=== PATIENT | female | born 1970 | race African-American/Black ===

== ENCOUNTER 2019-02-09 07:12 | Observation (INO) | payer OTHER ==
[2019-02-09] MEDS ORDERED: Morphine 4 MG/ML VIAL ONE (07:36)
[2019-02-09] MEDS ORDERED: Acetaminophen 500 MG TAB ONE (07:37)
[2019-02-09 07:40] LABS: #Basophils 0.1 thou/uL (0.0-0.2); #Eosinphils 0.1 thou/uL (0.0-0.7); #Lymphocytes 0.9 thou/uL (1.20-3.40); #Monocytes 0.4 thou/uL (0.11-0.59); #Neutrophils 5.8 thou/uL (1.40-6.50); %Basophils 1.1 % (0.0-1.0); %Eosinophils 1.3 % (0.0-10.0); %Lymphocytes 11.9 % (21.0-51.0); %Monocytes 5.5 % (0.0-10.0); %Neutrophils 80.2 % (42.0-75.0); Mean Corpuscular Hemoglobin 31.9 pg (27.0-31.0); Mean Platelet Volume 8.3 fL (7.4-10.4); Platelet Count 271 thou/uL (130-400); RBC Distribution Width 11.8 % (11.5-14.5); Red Blood Cell (RBC) Count 4.08 mill/uL (4.20-5.40); White Blood Cell (WBC) Count 7.3 thou/uL (4.8-10.8)
[2019-02-09 08:01] LABS: ALT (SGPT) 35 U/L (8-55); AST (SGOT) 23 U/L (5-34); Albumin 4.5 g/dL (3.5-5.0); Alkaline Phosphatase 87 U/L (40-110); Anion Gap 14 mmol/L (10-20); BUN (Urea Nitrogen) 9 mg/dL (7.0-18.7); Bilirubin, Total 0.3 mg/dL (0.2-1.2); CK (CPK) 109 U/L (29-168); Calc. Creatinine Clearance 0 mL/min (70-130); Calcium 9.2 mg/dL (7.8-10.44); Carbon Dioxide 22 mmol/L (22-29); Chloride 107 mmol/L (98-107); Estimated GFR-MDRD 80; Globulin 2.6 g/dL (2.4-3.5); Glucose 117 mg/dL (70-105); Lipase 7 U/L (8-78); Potassium 3.8 mmol/L (3.5-5.1); Protein, Total 7.1 g/dL (6.0-8.3); Sodium 139 mmol/L (136-145)
--- NOTE | 2019-02-09 09:31 | RAD ---
SINGLE VIEW CHEST: Date: 02/09/19 COMPARISON: None. HISTORY: Chest pain in left side of chest. FINDINGS: Single view of the chest shows a normal sized cardiomediastinal silhouette. There is no evidence of c onsolidation, mass, or pleural effusion. The bones are unremarkable. IMPRESSION: No evidence of acute cardiopulmonary disease. POS: CET
--- NOTE | 2019-02-09 09:35 | CT ---
CT ARTERIOGRAM CHEST WITH IV CONTRAST AND 3D IMAGING: Date: 02/09/19 HISTORY: Dyspnea. Elevated D-Dimer. FINDINGS: There is good contrast opacification of the central pulmonary arteries and thoracic aorta. Motion art ifact obscures peripheral vessels. There is common origin of the left common carotid artery from the brachiocephalic trunk. Scattered areas of mild parenchymal scarring are apparent within the lungs. No mediastinal adenopathy. No pleural fluid or pneumothorax. IMPRESSION: No CT evidence of pulmonary embolus. POS: TPC
[2019-02-09 09:40] LABS: Bilirubin Negative (Negative); Blood, Urine Trace (Negative); Clarity Clear (Clear); Glucose, Urine (Dipstick) Normal (Negative); Leukocyte Negative Leu/uL (Negative); Nitrite Negative (Negative); Protein, Urine (Dipstick) Negative (Neg-Trace); Urobilinogen Normal mg/dL (Less than 2)
[2019-02-09 09:48] LABS: Bacteria/HPF 2+ HPF (None Seen); RBC/HPF 0-3 HPF (0-3); WBC/HPF 0-3 HPF (0-3)
[2019-02-09] MEDS ORDERED: Ketorolac Tromethamine 30 MG/ML VIAL ONE (10:16)
[2019-02-09 10:46] LABS: Base Excess-Venous -0.8 mmol/L (-2.0 to 3.0); Bicarbonate (HCO3v) 24.8 mmol/L (22.0-28.0); CO2 Tension (PvCO2) 43.3 mmHg (40.0-50.0); Chloride 107 mmol/L (98-107); Hemoglobin - Calc 12.9 g/dL (12.0-16.0); Potassium 3.9 mmol/L (3.5-5.1); Sodium 142 mmol/L (138-145); T. Carbon Dioxide 26.1 mmol/L (22.0-28.0)
[2019-02-09] MEDS ORDERED: Senokot S 8.6-50 MG TAB PO PRN (11:13)
[2019-02-09] MEDS ORDERED: Ketorolac Tromethamine 30 MG/ML VIAL IVP PRN (11:15)
[2019-02-09] MEDS ORDERED: hydrALAZINE 20 MG/ML VIAL SLOW IVP PRN (11:40)
[2019-02-09] MEDS ORDERED: Nitroglycerin 2% Ointment 1 INCH/1 GM Packet ONE (12:04)
[2019-02-09] MEDS ORDERED: ISOVUE-370 76%-LOCM 1 ML ONE (12:30)
[2019-02-09 13:01] LABS: Troponin I Less than 0.010 ng/mL (< 0.028)
[2019-02-09 15:51] LABS: Troponin I Less than 0.010 ng/mL (< 0.028)
[2019-02-09 16:31] VITALS: BMI 35.2
[2019-02-09] MEDS: Sodium Chloride 0.9% 1,000 ML IV SCH ×2 (17:52→20:28)
--- NOTE | 2019-02-09 19:12 | HP ---
CHIEF COMPLAINT: Chest pain/shortness of breath. HISTORY OF PRESENT ILLNESS: The patient is a 48-year-old female with a history of hypertension, who presents to the hospital with complaints of nasal congestion, cough , and some chest pain that has been going on for the past 2 to 3 days. 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 She denies any diarrhea . She states that she has lost about 12 pounds since November and attributes that to her busy schedule and unable to eat properly. She also states that she does have night sweats to the point that she has to change her clothing. Currently, she describes her pain as a sharp pain and sometimes a tightness. No radiation. She denies any nausea or palpitations. She also has been very short of breath which concerned her, so she came into the ER for further evaluation. PAST MEDICAL HISTORY: She has a history of hypertension. ALLERGIES: SHE HAS NO KNOWN DRUG ALLERGIES. MEDICATIONS: She takes, 1. Hydrochlorothiazide. 2. PRN nitroglycerin. PAST SURGICAL HISTORY: She has had a hysterectomy and has only 1 oophorectomy. FAMILY HISTORY: History of heart disease in father and mother. REVIEW OF SYSTEMS: All negative except for the ones mentioned above in the HPI. SOCIAL HISTORY: She denies any alcohol use, recreational drug use, or smoking. She is a full code. Lives by herself. PHYSICAL EXAMINATION: VITAL SIGNS: Temperature of 98.8, respiratory rate 22, oxygen saturation 100% on room air, pulse 75, and blood pressure 149/101. GENERAL: She is awake, alert, and oriented x3. Does appear ill. HEENT: Normocephalic, atraumatic. No lymphadenopathy noted. She does have some pain upon palpation around her frontal and her maximally sinus areas. CV: S1 and S2 present. Mild tachycardia. LUNGS: She has mild expiratory wheezes all over. ABDOMEN: Soft and nontender. Bowel sounds are present x2. EXTREMITIES: No edema. Pedal pulses are present x2. NEUROVASCULAR: No focal deficits noted. SKIN: No cuts, lesions, or bruises noted. LABORATORY RESULTS: As of the following: WBCs of 7.3, hemoglobin of 13.0, hematocrit of 37.1, and platelets of 271. Chemistry; sodium of 142, potassium 3.9, chloride was 107, BUN of 9, and creatinine 0.77. Troponin x1 was negative, second one was negative also. Her EKG did not show any acute abnormalities. Her urine appeared to be normal. She did have a CTA which did not indicate any acute processes, no PE either. ASSESSMENT AND PLAN: The patient is a 48-year-old female who presents to the hospital with multiple complaints. 1. Atypical chest pain. Her troponins x3 are negative. She does appear ill, possibly having an upper respiratory infection. I will go ahead and do an echocardiogram on her. I do not think at this time she requires a stress test; however, she has been told to get a stress test as an outpatient, which she never has gotten to do so. The fact that she is feeling unwell, I do not think that will be reasonable to do a stress test right now, however, I will do an echocardiogram. 2. Possible upper respiratory infection, bacterial versus viral. She does not have a white count, however, the patient clinically appears very ill. I will start her on some IV fluids, give her some breathing treatments, p.r.n. pain medication, and also start her on some steroids. She states that she does not have a history of any chronic obstructive pulmonary disease or asthma; however, she does work in a daycare, I will check a respiratory viral panel also. 3. Possible sinusitis. I will start her on some Augmentin. She states that she has had sinus infections in the past requiring antibiotics. 4. Hypertension. We will continue her hydrochlorothiazide and p.r.n. blood pressure medications. 5. Deep venous thrombosis prophylaxis. We will put the patient on some Lovenox. Job ID: [id number]
[2019-02-09] MEDS: Amoxicillin/Potassium Clav 875 MG TAB PO SCH (20:22)
[2019-02-09] MEDS: Acetaminophen 325 MG TAB PO PRN (20:27)
[2019-02-10 06:18] LABS: #Eosinphils 0.4 thou/uL (0.0-0.7); #Lymphocytes 1.4 thou/uL (1.20-3.40); #Monocytes 0.6 thou/uL (0.11-0.59); #Neutrophils 2.1 thou/uL (1.40-6.50); %Basophils 0.3 % (0.0-1.0); %Eosinophils 7.8 % (0.0-10.0); %Lymphocytes 31.6 % (21.0-51.0); %Monocytes 13.6 % (0.0-10.0); %Neutrophils 46.8 % (42.0-75.0); Hemoglobin 12.3 g/dL (12.0-16.0); Mean Corpuscular HGB CONC 34.7 g/dL (32.0-36.0); Mean Corpuscular Hemoglobin 32.2 pg (27.0-31.0); Mean Platelet Volume 8.7 fL (7.4-10.4); Platelet Count 259 thou/uL (130-400); RBC Distribution Width 11.9 % (11.5-14.5); Red Blood Cell (RBC) Count 3.82 mill/uL (4.20-5.40); White Blood Cell (WBC) Count 4.6 thou/uL (4.8-10.8)
[2019-02-10 07:30] LABS: Anion Gap 11 mmol/L (10-20); BUN (Urea Nitrogen) 8 mg/dL (7.0-18.7); Calc. Creatinine Clearance 158 mL/min (70-130); Calcium 8.3 mg/dL (7.8-10.44); Carbon Dioxide 22 mmol/L (22-29); Chloride 105 mmol/L (98-107); Estimated GFR-MDRD Greater than 90; Glucose 91 mg/dL (70-105); Potassium 3.2 mmol/L (3.5-5.1); Sodium 135 mmol/L (136-145)
[2019-02-10] MEDS ORDERED: methylPREDNISolone Sod Succ 40 MG VIAL IVP SCH (09:00)
[2019-02-10] MEDS: Benzonatate 100 MG CAP PO PRN ×2 (09:06→21:10)
[2019-02-10] MEDS: Enoxaparin Sodium 40 MG/0.4 ML SYRINGE SC SCH (09:06)
[2019-02-10] MEDS: Acetaminophen 325 MG TAB PO PRN (09:06)
[2019-02-10] MEDS: Amoxicillin/Potassium Clav 875 MG TAB PO SCH ×2 (09:06→21:10)
[2019-02-10] MEDS: Hydrochlorothiazide 25 MG TAB PO SCH (09:06)
--- NOTE | 2019-02-10 14:20 | PDOC.HOSPP ---
- Subjective Encounter Date: 02/10/19 Encounter Time: 09:45 Subjective: pt up in bed states she feels a bit better - Objective Vital Signs & Weight: Vital Signs (12 hours) Temp Pulse Resp BP Pulse Ox 02/10/19 14:17 75 16 98 02/10/19 11:55 98.7 F 76 16 134/82 94 L 02/10/19 10:38 72 16 98 02/10/19 07:50 98.9 F 74 20 142/80 H 95 02/10/19 06:21 80 16 98 02/10/19 03:44 98.3 F 75 18 152/86 H 97 02/10/19 03:27 80 16 99 Weight Weight 231 lb 14.4 oz I&O: 02/09/19 02/10/19 02/11/19 06:59 06:59 06:59 Intake Total 1240 Output Total 200 Balance 1040 Result Diagrams: 02/10/19 05:21 02/10/19 07:01 Hospitalist ROS - Review of Systems Respiratory: denies: cough, dry, shortness of breath, hemoptysis, SOB with excertion, pleuritic pain, sputum, wheezing, other Cardiovascular: denies: chest pain, palpitations, orthopnea, paroxysmal noc. dyspnea, edema, light headedness, other Gastrointestinal: denies: nausea, vomiting, abdominal pain, diarrhea, constipation, melena, hematochezia, other - Medication Medications: Active Medications Generic Name Dose Route Start Last Admin Trade Name Freq PRN Reason Stop Dose Admin Acetaminophen 650 mg 02/09/19 11:13 02/10/19 09:06 Tylenol PO 650 mg Q4H PRN Administration Headache/Fever/Mild Pain (1-3) Albuterol/Ipratropium 3 ml 02/09/19 18:30 02/10/19 14:17 Duoneb NEB 3 ml [id number] LIYAH Administration Amoxicillin/Clavulanate Potassium 875 mg 02/09/19 21:00 02/10/19 09:06 Augmentin PO 875 mg Q12HR LIYAH Administration Benzonatate 100 mg 02/09/19 11:41 02/10/19 09:06 Tessalon PO 100 mg TIDPRN PRN Administration Cough Enoxaparin Sodium 40 mg 02/10/19 09:00 02/10/19 09:06 Lovenox SC 40 mg 0900 LIYAH Administration Hydrochlorothiazide 25 mg 02/10/19 09:00 02/10/19 09:06 Hydrochlorothiazide PO 25 mg DAILY LIYAH Administration Ketorolac Tromethamine 30 mg 02/09/19 11:15 02/09/19 17:52 Toradol IVP 02/14/19 11:16 30 mg Q6H PRN Administration Pain Methylprednisolone Sodium Succinate 40 mg 02/10/19 09:00 02/10/19 09:11 Solu-Medrol IVP 40 mg DAILY LIYAH Administration - Exam Heart: negative: RRR, no murmur, no gallops, no rubs, normal peripheral pulses, irregular, diminshed peripheral pulses, murmur present, II/IV, III/IV Respiratory: negative: CTAB, no wheezes, no rales, no ronchi, normal chest expansion, no tachypnea, normal percussion, rales, rhonchi, tachypneic, wheezes Gastrointestinal: negative: soft, non-tender, non-distended, normal bowel sounds , no palpable masses, no hepatomegaly, no splenomegaly, no bruit, no guarding, no rigidity, tender to palpation, distended, diminished bowl sounds, voluntary guarding Hosp A/P (1) Rhinovirus infection Code(s): B34.8 - OTHER VIRAL INFECTIONS OF UNSPECIFIED SITE Status: Acute (2) SOB (shortness of breath) Code(s): R06.02 - SHORTNESS OF BREATH Status: Acute (3) Atypical chest pain Code(s): R07.89 - OTHER CHEST PAIN Status: Acute - Plan pt's viral panel indicated rhino virus. will continue symptomatic treatment. echo pending. trops negative. will change to po steroids.
[2019-02-10] MEDS ORDERED: Potassium Chloride 20 MEQ TAB PO SCH (16:00)
[2019-02-11] MEDS ORDERED: predniSONE 20 MG TAB PO SCH (08:00)
[2019-02-11] MEDS: Enoxaparin Sodium 40 MG/0.4 ML SYRINGE SC SCH (09:25)
[2019-02-11] MEDS: Hydrochlorothiazide 25 MG TAB PO SCH (09:25)
[2019-02-11] MEDS: Amoxicillin/Potassium Clav 875 MG TAB PO SCH (09:25)
[2019-02-11 11:57] VITALS: BP 134/82; TEMP 98.6
--- NOTE | 2019-02-11 19:59 | EKG ---
Test Reason : Blood Pressure : / mmHG Vent. Rate : 094 BPM Atrial Rate : 094 BPM P-R Int : 146 ms QRS Dur : 090 ms QT Int : 380 ms P-R-T Axes : 046 024 039 degrees QTc Int : 475 ms Sinus rhythm Normal ECG No previous ECGs available Confirmed by SRINIVAS NEVILLE, DR. Mary ([id number]) on 02/11/2019 7:59:01 PM Referred By: JEREMIE Confirmed By:DR. Usman ESPINO MD
--- NOTE | 2019-02-11 22:25 | DIS ---
DATE OF ADMISSION: 02/09/2019 DATE OF DISCHARGE: 02/11/2019 DISCHARGE DIAGNOSES: As of the followin. Upper respiratory infection, most likely secondary to rhinovirus. 2. Shortness of breath. 3. Atypical chest pain. HOSPITAL COURSE: The patient is a 48-year-old female, who presented to the hospital with chest pain and shortness of breath. She underwent a CTA of the chest, which did not indicate any acute PE. Her troponin x3 were normal. However, we checked a viral panel which was positive for rhinovirus. She was put on some steroids and DuoNeb and her symptoms improved. Echocardiogram was ordered and it was done, however, the results are not in. I have asked her to follow up with her primary care doctor for the results. The patient continued to improve. She felt much better. Given her current upper respiratory infection, I asked her to follow up with her primary to get a possible stress test given her history of hypertension. I have also prescribed her blood pressure medications since she was unable to go to PCP for her blood pressure medications. Home medications will be prednisone 20 mg daily for three days, hydrochlorothiazide 25 mg daily. Also, she has a history of sinusitis and initially when she presented to the hospital, she did have significant amount of sinus pain. I have put her on antibiotics since she states that she gets frequent sinusitis and also p.r.n. nitroglycerin per her home medications. PHYSICAL EXAMINATION: VITAL SIGNS: Temperature 98.6, pulse 66, respirations 18, 97% on room air, and blood pressure 134/82. GENERAL: She is awake, alert, and oriented x3. Does not appear in distress. HEENT: Normocephalic, atraumatic. No lymphadenopathy noted. Pupils are equal and reactive to light. LUNGS: Clear to auscultation. No rhonchi or wheezes noted. ABDOMEN: Soft and nontender. Bowel sounds are present x2. Job ID: [id number]
--- NOTE | 2019-02-14 10:35 | EKG ---
Test Reason : CHEST PAIN Blood Pressure : / mmHG Vent. Rate : 101 BPM Atrial Rate : 101 BPM P-R Int : 146 ms QRS Dur : 088 ms QT Int : 344 ms P-R-T Axes : 051 024 058 degrees QTc Int : 446 ms Sinus tachycardia Otherwise normal ECG Confirmed by MIGUELINA VERDUZCO MD ([id number]), technical writer and editor MACHELLE DURANT ([id number]) on 02/14/2019 10:35:26 AM Referred By: Confirmed By:MIGUELINA VERDUZCO MD
== END 2019-02-11 13:25 | disposition home or self-care (01) ==
LOC: ERS 07:12 → EDBD 07:12 → ERHOLD 11:09 → 2SW 16:23
PROVIDERS: ADMIT Internal Medicine; ATTEND Internal Medicine
DX: J06.9 Acute upper respiratory infection, unspecified (principal); I10 Essential (primary) hypertension; R06.02 Shortness of breath; R07.9 Chest pain, unspecified; Z79.899 Other long term (current) drug therapy
CPT/HCPCS: 36415; 71045; 71275; 80048; 80053; 81003; 81015; 82330; 82550; 82803; 83605; 83690; 83880; 84484; 85025; 85379; 87040; 87070; 87205; 87633; 87798; 87804; 93005; 93010; 93306; 94640; 96361; 96372; 96374; 96375; 96376; G0378; J1650; J1885; J2270; J2920; J7512; J7620; Q9966